=== PATIENT | female | born 2000 | race Caucasian/White ===

== ENCOUNTER 2018-06-12 21:16 | Emergency (ER) | payer BC ==
[~2018-06-12] VITALS: Ht 162.6 cm; Wt 66.1 kg
[2018-06-12 21:18] VITALS: TEMP 36.8; Ht 162.6 cm; Wt 66.1 kg
[2018-06-12] MEDS ORDERED: IBUPROFEN 600 MG TAB PO STA (21:26)
--- NOTE | 2018-06-12 21:48 | EMERGENCY ROOM VISIT NOTE ---
ED Visit Note First contact with patient: 21:22 CHIEF COMPLAINT: Left Ankle pain HISTORY OF PRESENT ILLNESS: This 18-year-old female patient presents to the emergency department, ambulatory, approximately 3-4 hours after sustaining an injury to the left ankle and foot with a twisting, inversion motion while walking down 3 steps with a drop off. The patient complains of pain along the outside of the ankle. The patient denies pain of the foot. The patient rates the pain as throbbing and for/10. The patient is able to bear weight on the foot. Constant pain, worse with movement, weight bearing, and the dependent position. No knee pain, the patient is able to move their toes. No numbness or weakness of the foot, no laceration. The patient has no had a previous fracture to this ankle. The patient has taken Tylenol for the pain with mild relief. She did apply ice prior to arrival. The patient denies any other injury. REVIEW OF SYSTEMS: A 6 system review of systems was completed with positives and pertinent negatives listed in the HPI. ALLERGIES: None MEDICATIONS: Allergy medicine PMH: Allergic rhinitis SOCIAL HISTORY: The patient lives locally with her roommate. She is a [employer] student. She denies drug, alcohol, tobacco use. PHYSICAL EXAM: Vital Signs: Reviewed Nurse's notes, vital signs stable. GENERAL : This is a 18-year-old white female, no acute distress, but appears in pain, well-developed, well-nourished. MENTAL STATUS: Alert, oriented to person place and time, and cooperative. MUSCULOSKELETAL: The left ankle is swollen and tender over the lateral malleolus, but the skin is intact and there is no ligamentous instability. There is no fifth metatarsal tenderness. There is no tenderness over the rest of the foot. There is no calf or tibia/fibular tenderness. There is no visual deformity. The foot and toes are warm and well- perfused. Dorsalis pedis pulse 2+. Sensation to pain and light touch is intact. Capillary refill less than 2 seconds. RADIOLOGY: L ANKLE MIN 3 VIEWS ROUTINE CLINICAL HISTORY: Ankle pain status post trauma COMPARISON: None. DISCUSSION: There is mild lateral soft tissue swelling. No fractures are visualized. The ankle mortise appears intact on these nonstress views. IMPRESSION: Lateral soft tissue swelling. No fractures or subluxations identified. Electronically signed by: Zack Morrison M.D. 06/12/2018 9:45 PM Dictated Date/Time: 06/12/2018 9:44 PM EMERGENCY DEPARTMENT COURSE: I examined the patient. She was given ibuprofen and an ice pack for pain. X-rays of the left ankle were reviewed by myself and read by radiology and reveal soft tissue swelling but no acute fracture. A gel splint was applied to the ankle under my direction and the position was satisfactory. Neurovascular status was rechecked and intact. The patient was instructed on the use of crutches. The patient was discharged home in good condition. I attest that I have personally reviewed the patient's current medication list. Patient was found to have normal blood pressure on screening and does not require follow-up. Etiologies such as soft tissue injury, fracture, dislocation, neurovascular compromise, compartment syndrome, as well as others were entertained. DIAGNOSIS: Left ankle sprain The chart was completed utilizing [employer] voice recognition software. Grammatical errors, random word insertions, pronoun errors, and incomplete sentences are an occasional consequence of this system due to software limitations, ambient noise, and hardware issues. Any formal questions or concerns about the content, text, or information contained within the body of this dictation should be directly addressed to the provider for clarification. Vital Signs Date Time Temp Pulse Resp B/P (MAP) Pulse Ox O2 Delivery O2 Flow Rate FiO2 06/12/18 21:18 36.8 79 18 125/79 98 Room Air Medications Administered Medications (Trade) Dose Ordered Sig/Veronica Route Start Time Stop Time Status Last Admin Dose Admin Ibuprofen (Motrin Tab) 600 mg NOW STAT PO 06/12/18 21:26 06/12/18 21:27 DC 06/12/18 21:41 600 MG Departure Information Impression Primary Impression: Left ankle sprain Dispostion Home / Self-Care Condition GOOD Referrals No Doctor, Assigned (PCP) [facility] Patient Instructions ED Sprain Ankle, [facility] Additional Instructions You have been treated in the Emergency Department for an Ankle sprain. For pain control, you can use the following [id number] medicines (if >12 yo): Ibuprofen(Motrin, Advil) may be used for fever or pain. Use 600mg every six hours as needed. Take with food. Avoid using more than 2400mg in a 24 hour period. Do not use 2400mg per day for more than three consecutive days without physician direction. Prolonged inappropriate use can lead to stomach upset or ulcers. (AND/OR) Acetaminophen(Tylenol) may be used for fever or pain. Use 1000mg every six hours as needed. Avoid using more than 3000mg in a 24 hour period. If this is a recent injury (<24 hrs), ice can be applied to the area of pain for the first 3 days to help decrease pain and inflammation. Where the gel splint for comfort and support. Wear a supportive shoe such as a sneaker to help with weightbearing. Use the crutches you have been provided to keep ALL weight off of the ankle until weight bearing is tolerable. Return to the Emergency Department if your current symptoms worsen despite treatment course outlined above, or if you develop any of the following symptoms : intractable pain despite aforementioned treatment course or new onset of numbness or tingling of the foot. Problem Qualifiers Primary Impression: Left ankle sprain Encounter type: initial encounter Involved ligament of ankle: unspecified ligament Qualified Codes: S93.402A - Sprain of unspecified ligament of left ankle, initial encounter
[2018-06-12 22:17] VITALS: BP 126/71; PULSE 70; O2SAT 98
== END 2018-06-12 22:18 | disposition home or self-care (01) ==
LOC: C.EDB 21:17 → C.EDD 22:18
DX: S93.402A Sprain of unspecified ligament of left ankle, initial encounter (principal); X50.1XXA Overexertion from prolonged static or awkward postures, initial encounter